=== PATIENT | female | born 1985 | race Caucasian/White ===

== ENCOUNTER → 2023-10-01 | Outpatient (CLI) | payer BC ==
[2023-10-01 16:01] VITALS: BP 124/76; PULSE 54; RESP 14; TEMP 98.4
--- NOTE | 2023-10-01 16:27 | P.SLEEP ---
History of Present Illness DATE: 10/01/2023 CONSULTATION/NEW PATIENT EVALUATION HISTORY OF PRESENT ILLNESS/SLEEP-WAKE EVALUATION: 37-year-old lady had been e valuated in the sleep center for possible obstructive sleep apnea hypopnea syndrome. Patient had home sleep apnea test about 2 months ago in another institution, results was not conclusive. SLEEP SCHEDULE: Usually sleep schedule from 8 PM to 4:30 AM during the week and from 10 PM to 6 7 AM on weekend. FALLING ASLEEP: Sometimes patient has difficulties to fall asleep, has TV set in bedroom. DURING SLEEP: Patient usually sleeps on this side and stomach position with snoring and awakenings from sleep up to 4 times with 1 episode of nocturia. Positive history of grinding teeth and sweating. No history of hypnogogical hallucinations, sleep paralysis, or cataplexy. DURING THE DAY/WAKE STATE: During the day patient has episodes of anxiety. Reeder sleepiness scale is 7. Patient take nap at noon time on weekend. PAST MEDICAL HISTORY: Anxiety. PAST SURGICAL HISTORY: Tonsillectomy, wisdom teeth removed. MEDICATIONS: Citalopram 20 mg once a day, valacyclovir 500 mg as needed. SOCIAL HISTORY: Please see below. FAMILY HISTORY: Heart problems, diabetes. REVIEW OF SYSTEMS: Snoring, multiple awakenings from sleep. No fevers. No double vision. No recent chest pain. No shortness of breath. No abdominal pain. No bleeding episodes. No blood in urine. No seizure episodes. PHYSICAL EXAMINATION: GENERAL: A pleasant patient without any distress. VITAL SIGNS: Please see below, body mass index 25.2. HEENT: PERRLA, EOMI. Evaluation of oropharynx showed tongue protrudes midline, low position of soft palate Mallampati 3-4, significant retrognathia about 5-6 mm. NECK: Supple. No JVD. Thyroid is not palpable. 14 inches in circumference. LUNGS: Clear to percussion and to auscultation. Good air exchange. No wheezing or rhonchi. HEART: S1, S2 regular. No murmurs, gallops or rubs. ABDOMEN: Soft and nontender. Bowel sounds are present. No organomegaly appreciated. EXTREMITIES: No clubbing or cyanosis. POP SINGER: Awake, alert, and oriented x3. Cranial nerves 2 to 7 intact. There is no fasciculation or atrophy noted. No focal deficits observed. ASSESSMENT: 1. Snoring, multiple awakenings from sleep, extremely low position of soft palate Mallampati 34, significant retrognathia about 6 mm. Obstructive sleep apnea hypopnea syndrome. 2. History of anxiety. 3. Retrognathia about 6 mm. 4. Status post tonsillectomy. PLAN: 1. Polysomnography for evaluation of patient's breathing during sleep. Patient had home sleep apnea test about 2 months ago which was done in another institution, not conclusive. 2. Following plan after reading sleep study. 3. Preferable position during sleep on the side. 4. No driving if patient feels any sleepiness. Patient is aware of civil and criminal liability for unsafe driving. 5. Sleep hygiene with regular sleep time for at least 7.5-8 hours. 6. Watching weight. Thank you very much for referring this patient for consultation. Sincerely, Sabas Powers MD, PhD, FAASM. Diplomat of [employer], Sleep Medicine Board by [employer] [facility] Past Medical History Additional Past Medical History / Comment(s): TONSILECTOMY, ANXIETY History of Any Multi-Drug Resistant Organisms: None Reported Past Surgical History: Tonsillectomy Additional Past Surgical History / Comment(s): WISDOM TEETH Past Psychological History: Anxiety Smoking Status: Former smoker Past Alcohol Use History: Occasional Past Drug Use History: Marijuana Additional Drug Use History / Comment(s): CURRENT MARIJUANA Medications and Allergies Home Medications Medication Instructions Recorded Confirmed Type Citalopram Hydrobromide 20 mg PO DAILY 10/01/23 10/01/23 History [Citalopram HBr] valACYclovir HCL [Valacyclovir] 500 mg PO PRN 10/01/23 History Physical Exam Vitals: Vital Signs Temp Pulse Resp BP Pulse Ox 10/01/23 15:53 98.4 F 54 L 14 124/76 98 Intake and Output 10/01/23 10/01/23 10/01/23 06:59 14:59 22:59 Other: Weight 70.307 kg Sleep Note - Sleep Data ESS Total: 7 - Sleep Note Sleep Note: Temperature: 98.4 F Pulse Rate: 54 Respiratory Rate: 14 Blood Pressure: 124/76 SpO2: 98 Height: 5 ft 5.7 in Weight: 70.307 kg BMI: Neck Circumference:
== END ==
LOC: 3 N SLEEP 15:20
PROVIDERS: ATTEND Internal Medicine
DX: G47.33 Obstructive sleep apnea (adult) (pediatric) (principal); R06.83 Snoring; F41.9 Anxiety disorder, unspecified; M26.19 Other specified anomalies of jaw-cranial base relationship; Z98.890 Other specified postprocedural states
CPT/HCPCS: 99211

== ENCOUNTER 2023-11-13 19:36 | Outpatient (CLI) | payer BC ==
--- NOTE | 2023-11-19 15:31 | P.PCN ---
Description of Procedure: POLYSOMNOGRAPHY REPORT PROCEDURE(S)/DATE(S): Polysomnography 11/13/2023 CLINICAL: Patient has been seen in the sleep center for evaluation of obstructive sleep apnea-hypopnea syndrome. Please see my consultation. Sleep study has been done for evaluation of patient breathing during the sleep. PROCEDURE: The standard montage for clinical polysomnography included the electroencephalogram, the electrooculogram, the mentalis surface electromyography and Lead II cardiography. The respiratory battery consisted of measurements of nasal/buccal air flow, pressure transducer measurements from nose, thoracic and/or abdominal effort and intercostal surface electromyography. Video monitoring has been done to check for any parasomnia events. Nocturnal oxyhemoglobin saturations were obtained by finger oximetry. Step-castillo titration with positive airway pressure was utilized to control the respiratory events, if necessary. RESULTS: During the diagnostic sleep study sleep efficiency was decreased to 72.0%. Latency to sleep onset was prolonged to 84.5 min. Sleep architecture showed stage NI was extremely short 0.3%, Delta sleep was normal 11.3%, REM sleep was normal 22.0%. Respiratory channel showed 0 obstructive apneas, 0 mixed apneas, 0 central apneas, 0 hypopneas with lowest oxygen level 94%. Total apnea hypopnea index was 0. Heart rate was in the range between 49 and 57, average 53. EMG showed 22.7 periodic limb movements per hour with 0.4 micro-arousals per maria c r. IMPRESSIONS: 1. No significant respiratory abnormalities have been documented during the sleep study. Normal oxygenation during sleep. 2. Periodic limb movements have been documented, but without significant amount of micro arousals. 3. Long sleep latency and low sleep efficiency could be secondary to insomnia, periodic limb movements, first night adaptation response. Please see other impressions from consultation PLAN: 1. I will see patient for follow-up visit to explain results of the test and recommendations. 2. Please check iron profile including ferritin level. Low level of iron may increase the risk for periodic limb movements. 3. Sleep hygiene with regular time in bed for at least 7-1/2 hours. 4. No driving if feeling sleepiness. Thank you very much for allowing me to participate in the management of your patient. Sincerely, Sabas Powers MD, PhD, FAASM. Diplomat of [employer], Sleep Medicine Board by [employer] [facility]
== END 2023-11-14 05:20 | disposition home or self-care (01) ==
LOC: 3 N SLEEP 19:36
PROVIDERS: ATTEND Internal Medicine
DX: G47.33 Obstructive sleep apnea (adult) (pediatric) (principal); G47.61 Periodic limb movement disorder; G47.00 Insomnia, unspecified
CPT/HCPCS: 95810